=== PATIENT | male | born 1985 | race Two or more races ===

== ENCOUNTER 2022-03-21 08:33 | Emergency (ER) | payer MEDICAID ==
[~2022-03-21] VITALS: Ht 175.3 cm; Wt 77.0 kg
[2022-03-21] MEDS ORDERED: AMOX-424 MT (09:42)
[2022-03-21] MEDS ORDERED: ALBU18HF2 IH ×2 (10:14→10:16)
[2022-03-21 10:27] VITALS: BP 121/65
== END 2022-03-21 10:27 | disposition home or self-care (01) ==
LOC: ER 09:43
DX: S61.253A Open bite of left middle finger without damage to nail, initial encounter (principal); W55.01XA Bitten by cat, initial encounter; Y93.89 Activity, other specified; Y92.89 Other specified places as the place of occurrence of the external cause; Y99.8 Other external cause status; J45.909 Unspecified asthma, uncomplicated
CPT/HCPCS: 99282; 99283